=== PATIENT | female | born 1975 | race Caucasian/White ===

== ENCOUNTER 2022-03-17 13:40 | Emergency (ER) | payer BC, SELFPAY ==
--- NOTE | ~2022-03-17 | XR_ITS ---
EXAM: XR abdomen/kub 1V DATE: 03/17/2022 14:09 HISTORY: right flank pain/hematuria . COMPARISON: None available. FINDINGS: Normal bowel gas pattern. No organomegaly. 7 mm calcific density projects over the right l ower pole. Multiple pelvic phleboliths. Regional bones and soft tissues normal for age. IMPRESSION: Right nephrolithiasis. Multiple phleboliths could obscure distal collecting system stones . Reviewed, dictated and finalized at location K. IMPRESSION: Right nephrolithiasis. Multiple phleboliths could obscure distal co llecting system stones.
[2022-03-17 13:52] VITALS: BP 141/87; PULSE 68; RESP 16; TEMP 36.8; O2SAT 100
--- NOTE | 2022-03-17 13:52 | ED.FEMALEGU ---
HPI - Female Genitourinary General Chief complaint: Urogenital-Female Stated complaint: lower back pain Time Seen by Provider: 03/17/22 13:52 Source: patient and RN notes reviewed Mode of arrival: ambulatory Limitations: no limitations History of Present Illness HPI Narrative: 47-year-old female presented for complaint of sudden onset right flank pain today at 0845. States pain is severe, and radiates to the right upper abdomen. She endorses nausea, chills and sweats, and urinary urgency for voiding small amounts. Pain is sharp and constant, nothing improves or worsens the pain. She denies dysuria, hematuria, vomiting. Denies injury. Took ibuprofen at onset of symptoms without relief. Related Data Home Medications Medication Instructions Recorded Confirmed No Home Medications 03/17/22 03/17/22 Allergies Allergy/AdvReac Type Severity Reaction Status Date / Time butorphanol Allergy Mild Nausea and Unverified 03/17/22 14:00 Vomiting meperidine Allergy Mild Nausea and Unverified 03/17/22 14:00 Vomiting Review of Systems Review of Systems: CONSTITUTIONAL: Denies body aches, fever, chills, or sweats. CARDIOVASCULAR: Denies chest pain, palpitations, or edema. RESPIRATORY: Denies cough or dyspnea. GASTROINTESTINAL: Reports right upper abdominal pain, nausea GENITOURINARY: Reports urgency, right flank pain SKIN: Denies rash, itching, or wounds. MUSCULOSKELETAL: Denies myalgia. PMFSH Comments At time of signature, I have reviewed and agree with nursing past medical, surgical, social and family history unless otherwise noted. Please see nursing chart for further information. There is no relevant family history pertinent to the presenting complaint Exam Narrative: GENERAL: appears in pain, no acute distress. ENT: Mucous membranes pink and moist. CHEST: Clear to auscultation. HEART: Regular rate and rhythm. ABDOMEN: Abd Soft, nondistended, RUQ TTP, and right CVA tenderness MUSCULOSKELETAL: No bony tenderness. SKIN: Warm, dry, no rash. NEURO: Alert and oriented x3. Gait steady. Course Course Emergency Course: Patient is aware of diagnosis, understands and agrees to treatment plan. Portions of this record may have been created with voice recognition software Level of Care: Express Care Visit Vital Signs Vital signs: Vital Signs Temperature 98.3 F 03/17/22 13:52 Pulse Rate 68 03/17/22 13:52 Respiratory Rate 16 03/17/22 13:52 Blood Pressure 141/87 H 03/17/22 13:52 Pulse Oximetry 100 03/17/22 13:52 Temperature 98.3 F 03/17/22 13:52 Pulse Rate 68 03/17/22 13:52 Respiratory Rate 16 03/17/22 13:52 Blood Pressure 141/87 H 03/17/22 13:52 Pulse Oximetry 100 03/17/22 13:52 Reviewed Transfer Transfered to: [facility] Transportation: Other (private vehicle) Transfer rationale: Pt is agreeable to transfer to ER for right renal stone evaluation. Requests transfer to [facility] via private vehicle. Risks of transportation reviewed with pt including injury, worsening of condition and . v/u. will be driving pt; Report called to [facility], spoke with Dr Aguiar, accepting physician. Pt is in stable condition at time of transfer. Advised to remain NPO and go directly to the hospital. MDM - Female Genitourinary MDM Narrative Medical decision making narrative: Urine shows 1+ blood. KUB ordered. IM toradol and zofran given for c/o severe pain. Reports pain down to 5/10. Xray reviewed with pt, 7mm stone noted, advised ER transfer. Differential Diagnosis Differential diagnosis: Likely urinary tract infection, cystitis and other (nephrolithiasis, renal colic, cholecystitis, biliary colic) Lab Data Labs: Urine Glucose Negative Reference Range: Negative Urine Bilirubin Negative Reference Range: Negative Urine Ketone
[2022-03-17] MEDS: ONDANSETRON HCL ODT 4 MG TABLET SUBLINGUAL (14:07)
[2022-03-17] MEDS: KETOROLAC (*BKC) 60 MG/2 ML VIAL IM (14:07)
== END 2022-03-17 14:45 | disposition short-term general hospital (02) ==
PROVIDERS: Emergency Provider Nurse Practitioner Family; PCP Nurse Practitioner Family
DX: N20.0 Calculus of kidney (principal)
CPT/HCPCS: 74018; 81003; 96372; 99203; A9270; G0463; J1885

== ENCOUNTER 2022-03-17 15:03 | Emergency (ER) | payer BC, SELFPAY ==
--- NOTE | ~2022-03-17 | CT_ITS ---
EXAMINATION: CT abdomen pelvis wo con DATE: 03/17/2022 15:42 INDICATION: Right flank pain. TECHNIQUE: Computed tomography (CT) of the abdomen and pelvis was performed without intravenous contr ast. Automated exposure control and iterative reconstruction technique were employed. The dose-length product was 195.82 mGy-cm. COMPARISON: None. FINDINGS: The visualized portions of the lung bases demonstrate mild atelectasis. A calcified right l teresa nodule is consistent with old granulomatous disease. No pleural effusion. The heart size is tony l. No pericardial effusion. The liver, gallbladder, spleen, pancreas, and adrenal glands are normal. There are 3 mm and 8 mm stones in right kidney. There is mild right hydronephrosis and hydroureter. T here is a 5 mm stone in distal right ureter. There is a 4 mm stone in left kidney. There are no patho logically enlarged lymph nodes. There is no free intraperitoneal fluid. There is thoracolumbar levosc oliosis. There is severe degenerative disc disease at L5-S1. IMPRESSION: 1. 5 mm stone in distal right ureter with mild right hydronephrosis and hydroureter. 2. Bilateral nonobstructing kidney stones. Reviewed, dictated and finalized at location A. IMPRESSION: 1. 5 mm stone in distal right ureter with mild right hydronephrosis and hydrour eter. 2. Bilateral nonobstructing kidney stones.
[2022-03-17 15:17] VITALS: BP 148/96; PULSE 74; RESP 16; TEMP 36.9; O2SAT 97
[2022-03-17 15:24] LABS: Basophils Absolute Auto 0.1 K/mm3 (0.0-0.1); Basophils Percent Auto 0.3 % (0.2-1.2); Hematocrit 41.2 % (37.0-47.0); Hemoglobin 13.7 g/dL (12.0-15.0); Immature Granulocyte Absolute 0.05 K/mm3 (0.00-0.031); Immature Granulocyte Percent A 0.3 % (0-0.5); Lymphocytes Percent Auto 6.5 % (18.3-44.2); Mean Corpuscular HGB Conc 33.3 g/dl (32-36); Mean Corpuscular Hemoglobin 31.9 pg (26-34); Mean Corpuscular Volume 95.8 fl (80-100); Mean Platelet Volume 10.4 fl (7.4-10.4); Monocytes Absolute Auto 0.5 K/mm3 (0.1-0.6); Monocytes Percent Auto 3.4 % (2.6-8.5); Neutrophils Absolute Auto 13.8 K/mm3 (1.3-6.7); Neutrophils Percent Auto 89.5 % (45.5-73.1); Platelet Count Result 278 k/mm3 (150-375); Red Cell Distribution Width 12.5 % (11.5-14.5); White Blood Count 15.4 K/mm3 (4.5-10.0)
[2022-03-17 15:42] LABS: Alanine Aminotransferase 17 U/L (6-35); Albumin Level 4.9 g/dL (3.5-5.1); Alkaline Phosphatase 57 U/L (38-126); Anion Gap 5 mmol/L (8-16); Aspartate Amino Transferase 30 U/L (14-36); Bilirubin,Total 0.8 mg/dL (0.2-1.3); Blood Urea Nitrogen 10 mg/dL (7-17); Calcium 9.4 mg/dL (8.4-10.2); Carbon Dioxide 22 mmol/L (22-30); Chloride 107 mmol/L (98-107); Estimated CRCL calculation 85 ml/min; Estimated Glomerular Filt Rate > 60; Glucose 136 mg/dL (65-110); Potassium 4.7 mmol/L (3.4-5.0); Sodium 134 mmol/L (137-145)
--- NOTE | 2022-03-17 16:25 | ED.FEMALEGU ---
HPI - Female Genitourinary General Chief complaint: Urogenital-Female Stated complaint: right flank pain - kidney stone Time Seen by Provider: 03/17/22 15:18 Source: patient and family Mode of arrival: ambulatory Limitations: no limitations History of Present Illness HPI Narrative: 47 years old white female developed a right flank pain at 8 AM this morning, associated with nausea, restlessness, was not able to get comfortable in any position. Went to urgent care had a diagnosis of right distal ureteric stone, received Toradol and Zofran prior to arrival with good improvement. Patient referred to our emergency room for further evaluation. Patient is healthy otherwise, does not take medicine at home, denied any smoking, drinking or using drugs. She denies a history of kidney stone as well Related Data Allergies Allergy/AdvReac Type Severity Reaction Status Date / Time butorphanol Allergy Mild Nausea and Verified 03/17/22 15:19 Vomiting meperidine Allergy Mild Nausea and Verified 03/17/22 15:19 Vomiting Review of Systems Review of Systems: All systems reviewed & are unremarkable except as noted in HPI and below Exam Narrative: General appearance: Well-developed, well-nourished Skin: Normal color Head: Normocephalic, nontraumatic Eyes: Clear conjunctiva ENT: Oropharynx normal, ears normal, nose normal Neck: Supple, nontender Chest and respiratory: Airway patent, no respiratory distress, no accessory muscle use Heart: Regular rate/rhythm Abdomen: Soft, slight tenderness right flank,, no organomegaly, quiet bowel sounds Vascular: Normal peripheral pulses, normal capillary refill. Musculoskeletal: Normal range of motion, nontender back Neurologic: Alert and oriented ?3, [employer] is normal as tested, no gross motor deficit Course Consultations Consultation #1: Dr. Rodriguez Patient can go home, as long as feeling okay, call office tomorrow for appointment. Date: 03/17/22 Time: 17:05 Vital Signs Vital signs: Vital Signs Temperature 36.9 C 03/17/22 15:17 Pulse Rate 74 03/17/22 15:17 Respiratory Rate 16 03/17/22 15:17 Blood Pressure 148/96 H 03/17/22 15:17 Pulse Oximetry 97 03/17/22 15:17 Temperature 36.9 C 03/17/22 15:17 Pulse Rate 74 03/17/22 15:17 Respiratory Rate 16 03/17/22 15:17 Blood Pressure 148/96 H 03/17/22 15:17 Pulse Oximetry 97 03/17/22 15:17 MDM - Female Genitourinary Lab Data Result diagrams: 03/17/22 15:19 03/17/22 15:19 Labs: Lab Results 03/17/22 03/17/22 03/17/22 Range/Units 15:19 15:19 15:52 WBC 15.4 H (4.5-10.0) K/mm3 RBC 4.30 (4.2-5.4) M/mm3 Hgb 13.7 (12.0-15.0) g/dL Hct 41.2 (37.0-47.0) % MCV 95.8 (80-100) fl MCH 31.9 (26-34) pg MCHC 33.3 (32-36) g/dl RDW 12.5 (11.5-14.5) % Plt Count 278 (150-375) k/mm3 MPV 10.4 (7.4-10.4) fl Immature Gran % (Auto) 0.3 (0-0.5) % Neut % (Auto) 89.5 H (45.5-73.1) % Lymph % (Auto) 6.5 L (18.3-44.2) % [place] % (Auto) 3.4 (2.6-8.5) % Eos % (Auto) 0.0 (0-4.4) % Baso % (Auto) 0.3 (0.2-1.2) % Lymph # (Auto) 1.00 (0.9-3.2) K/mm3 [place] # (Auto) 0.5 (0.1-0.6) K/mm3 Eos # (Auto) 0.0 (0-0.3) K/mm3 Baso # (Auto) 0.1 (0.0-0.1) K/mm3 Abs Immat Gran (auto) 0.05 H (0.00-0.031) K/mm3 Absolute Neuts (auto) 13.8 H (1.3-6.7) K/mm3 Absolute Nucleated RBC 0.0 (0.0-0.012) K/mm3 Nucleated RBC % 0.0 (0.0-0.2) % Sodium 134 L (137-145) mmol/L Potassium 4.7 (3.4-5.0) mmol/L Chloride 107 (98-107) mmol/L Carbon Dioxide 22 (22-30) mmol/L Anion Gap 5 L (8-16) mmol/L BUN 10 (7-17) mg/dL
[2022-03-17 16:36] LABS: Appearance Urine Cloudy (Clear); Bilirubin Urine Negative (Negative); Color Urine Yellow (Yellow); Glucose Urine UA Negative (Negative); Ketones Urine Negative (Negative); Leukocyte Esterase Ur Negative LEU/UL (Negative); Nitrate Urine Negative (Negative); Protein Urine Trace mg/dL (Negative); Specific Grav Ur >= 1.030 (1.001-1.035); Urobilinogen Urine 0.2 mg/dL (<2.0); pH Urine 5.5 (5.0-9.0)
[2022-03-17 16:47] LABS: Budding Yeast Urine Present /hpf; Mucus Urine Few /lpf; RBC Urine 0-2 /hpf (0-2); Squamous Epithelial Cell Urine Moderate /hpf (Few)
[2022-03-17] MEDS: TAMSULOSIN HCL 0.4 MG CAPSULE PO (16:47)
[2022-03-17 16:48] LABS: Add Urine Microscopic? YES; Blood Urine Trace-Intact (Negative)
== END 2022-03-17 17:35 | disposition home or self-care (01) ==
PROVIDERS: Emergency Provider Emergency Medicine; PCP Nurse Practitioner Family
DX: N13.2 Hydronephrosis with renal and ureteral calculous obstruction (principal)
CPT/HCPCS: 36415; 74176; 80053; 81001; 81025; 85025; 99284; A9270

== ENCOUNTER → 2022-04-18 14:59 | Outpatient (CLI) | payer BC, SELFPAY ==
--- NOTE | ~2022-04-18 | CT_ITS ---
EXAMINATION: CT abdomen pelvis wo con DATE: 04/18/2022 15:36 INDICATION: Calculus of the right ureter TECHNIQUE: Computed tomography (CT) of the abdomen and pelvis was performed without intravenous contr ast. The dose-length product (DLP) was 323.38 mGy-cm. Automated exposure control and iterative recons truction technique were employed. COMPARISON: 03/17/2022 FINDINGS: Minimal dependent atelectasis is present in the lung bases. The heart size is normal. The l iver, spleen, pancreas, gallbladder, and adrenal glands are normal. Again noted are stones in the low er pole of the right kidney which measures 3 mm an 8 mm. There is an unchanged 5 mm stone in the dist al right ureter near the ureterovesicular junction. There is a 4 mm nonobstructing stone of the left kidney. No pathologically enlarged abdominal or pelvic lymph nodes are identified. There is no free i ntraperitoneal gas or evidence of bowel obstruction. There are multiple phleboliths of the pelvis. Th ere is severe loss of intervertebral disc space height at L5-S1. IMPRESSION: 1. Persistent 5 mm stone of the distal right ureter. 2. Bilateral nonobstructing nephrolithiasis. Reviewed, dictated and finalized at location A.
--- NOTE | ~2022-04-18 | XR_ITS ---
EXAMINATION: XR abdomen/kub 1V INDICATION: Right ureteral stone TECHNIQUE: Supine views of the abdomen were obtained on 2 radiographs. COMPARISON: 03/17/2022 FINDINGS: There is an 8 mm stone of the right kidney. A 4 mm stone is seen in the left kidney lower p ole. There are multiple phleboliths of the pelvis. A right pelvic calcification likely reflects the r ight distal ureteral stone seen on CT. The bowel gas pattern is normal. IMPRESSION: 1. Right pelvic calcification corresponding to the right distal ureteral stone seen on CT. 2. Bilateral nephrolithiasis. Reviewed, dictated and finalized at location A.
== END ==
PROVIDERS: PCP Nurse Practitioner Family; Visit Provider Urology
DX: N20.1 Calculus of ureter (principal); N20.0 Calculus of kidney
CPT/HCPCS: 74018; 74176

== ENCOUNTER 2022-04-26 09:24 | Outpatient (CLI) | payer BC, SELFPAY | END 2022-04-26 09:25 | disposition home or self-care (01) | LOC: ANHLAB 09:25 | PROVIDERS: PCP Nurse Practitioner Family; Visit Provider Urology | DX: Z01.818 Encounter for other preprocedural examination (principal); N20.0 Calculus of kidney | CPT/HCPCS: 87086 ==

== ENCOUNTER 2022-04-29 00:48 | Day surgery (SDC) | payer BC, SELFPAY ==
[2022-04-25 14:23] VITALS: BMI 26.6
--- NOTE | 2022-04-25 14:33 | PC.NURSE ---
PRE-OP INSTRUCTIONS, PLEASE READ CAREFULLY Report to the Outpatient Waiting Room, entrance under the green pavilion located off [facility], at time _0900_ on date _04/29/22_. OR Time: _1100_. Time changes happen often and if your time is changed the preop area will call you the afternoon before. - You and your visitor will be asked to self-screen and do not enter if you have any COVID symptoms. - We encourage only one visitor and NO visitors under age 16 are allowed at this time. Your visitor will receive communication by the phone number that is given day of service. - The patient visitor is requested to social distance or may leave the building when not with patient due to restrictions. - A mask is required within the hospital. Patients may have clear liquids (water, carbonated beverages, clear teas, apple juice) until 3 hours prior to surgery (0800 AM) with a maximum of 20 ounces. - No food from midnight until time of surgery Take the following medications with a SIP of water the morning of surgery: N/A Medications to discontinue per physician N/A Date to take last dose Please no make-up, nail japanese, hairspray, perfume, deodorant, or body powder the day of surgery. No jewelry (including any body piercings) or valuables the day of surgery, leave them at home. Please take a shower or bath the night before, or the morning of, surgery with an antibacterial soap. Wear comfortable, loose fitting clothing. - Jewelry must be removed prior to entering the operating room. Rings and piercings that are not removed may be cut off. - The hospital will not accept responsibility for valuables. - Please leave all valuables, including medications, at home the day of surgery. If you are going home after surgery, a licensed escort vehicle driver must drive you home. - NO public transportation without another adult. - We recommend that an adult stay with you for 24 hours following discharge. - We also recommend that you do not drive, make important decision, drink alcoholic beverages, or take any drugs that were not prescribed by your health care provider for at least 24 hours after your discharge time. Follow any additional instructions given to you from your surgeon. If you or anyone in your household have experienced Covid symptoms in the past week, please notify your surgeon or the nurse liaison at the phone number below for possible testing. Telephone instructions given to ____PT and asked if any additional questions and then verbalized understanding. Patient advised to call surgeon office or pre surgery nurse liaison [phone] if any additional questions.
[2022-04-29] VITALS (7 sets, daily range): BP systolic 130–152; BP diastolic 77–106; PULSE 64–110; RESP 14–16; TEMP 36.8–36.9; O2SAT 99–100
--- NOTE | ~2022-04-29 | XR_ITS ---
EXAMINATION: XR retrograde pyelo w/stent RT DATE: 04/29/2022 11:58 INDICATION: Right retrograde Polygram and internal ureteral stent placement. TECHNIQUE: 3 fluoroscopic images of the abdomen and pelvis were obtained during procedure performed abdelrahman Rodriguez. Radiologist was not present for the imaging or procedure. The amount of fluoroscopy t claribel used during this procedure was 0.2 minutes. COMPARISON: None. FINDINGS: Images demonstrate cannulation and retrograde contrast opacification of the right ureter and renal co llecting system. No filling defects or urothelial irregularities identified. Subsequent images demons trate placement of a right internal ureteral stent with loops formed in the right renal pelvis and in the bladder. IMPRESSION: 1. Right internal ureteral stent in expected position. See procedure note for further detail. Reviewed, dictated and finalized at location B. IMPRESSION: 1. Right internal ureteral stent in expected position. See procedure note for f urther detail.
--- NOTE | 2022-04-29 09:39 | P.PNAN_ITS ---
Anes - Initial Pre Proc Eval Procedure: Operation Date: 04/29/22 11:00 Proposed Procedures p Cystoscopy, Right Ureteroscopy, Right Stone Extraction, Right Stent Placement, Right Retrograde Pyelogram, Possible Holmium Laser - Denzel Rodriguez MD Date/Time: 04/29/22 09:39 Surgeon: Denzel Rodriguez MD Pre Op Diagnosis: Ureteral Kidney Stone, Right Side Patient Data Age: 47 Gender: F Height: 1.6 m Weight: 68.18 kg Allergies Allergy/AdvReac Type Severity Reaction Status Date / Time butorphanol AdvReac Mild Nausea and Verified 04/29/22 07:09 Vomiting meperidine AdvReac Mild Nausea and Verified 04/29/22 07:09 Vomiting Home Medications Medication Instructions Recorded Confirmed Type No Home Medications 04/25/22 04/25/22 History Patient hx anesthesia problems: none Family hx anesthesia problems: none Results Review: All pre-operative results and documents have been reviewed as part of the pre- operative evaluation. [facility] Social History Social History Smoking status: Never smoker Second hand tobacco smoke exposure: No Alcohol intake: never Substance use: never Substance use type: does not use Living arrangements: with family Spiritual care concerns: No Anes - Eval Final PreProcedure Day of Procedure 04/29/22 09:39 Patient weight: overweight Heart: regular rate and rhythm Lungs: clear to auscultation Airway: Mallampati scale class 1 Neurological: alert and oriented Last oral intake: >/= 8 hours ASA classification: II Emergent: no Anesthetic plan: proceed Anesthesia type and monitoring: general LMA and standard monitoring Results Review: All pre-operative results and documents have been reviewed as part of the pre- operative evaluation. Informed Consent: The patient's anesthetic plan and its attendant risks and benefits were discussed with the patient/family/POA. Questions were solicited and answers provided to the satisfaction of the patient/family/POA.
--- NOTE | 2022-04-29 09:56 | WPDHPUPDATE1 ---
History and Physical Update Update Date/Time: 04/29/22 09:56 History and Physical has been reviewed, including an updated exam of the patient. There are NO changes in the patient's condition. Risks, benefits, and alternatives have been discussed and questions answered. Patient agrees to proceed with procedure. Proceed with cystoscopy, right retrograde pyelogram, right ureteroscopy with stone extraction, possible laser, stent placement
[2022-04-29] MEDS: LACTATED RINGERS 1,000 ML 30 ML IV CONT (10:45)
[2022-04-29] MEDS: SCOPOLAMINE 1.5 MG PATCH TRANSDERM (10:49)
[2022-04-29] MEDS: KETOROLAC 30 MG/ML VIAL (*BKC) IV PUSH (11:54)
[2022-04-29] MEDS: ceFAZolin 2 GM/D5W 50 ML 2 GM/50 ML BAG IVPB (11:54)
[2022-04-29] MEDS: LIDOCAINE HCL 2% GEL UROJET 10 ML PKG MUCOUS MEM (11:55)
--- NOTE | 2022-04-29 11:59 | P.OP_ITS ---
Procedure Note - Detailed Date of Procedure 04/29/22 Pre-op Diagnosis Right ureteral calculus Post-op Diagnosis Same Procedure Performed Cystoscopy, right retrograde pyelogram, right ureteroscopy with stone extraction, right ureteral stent placement 4.8 English contour Surgeon Denzel Rodriguez MD Anesthesia General Description of Procedure Patient is taken to the operative suite correctly identified. Once anesthesia was obtained she was placed in dorsal lithotomy position and prepped and draped usual sterile fashion. Twenty-two English scope was inserted in the bladder. There were no tumors noted. The right ureteral orifice was cannulated with a guidewire. We dilated the orifice using an 8/10 dilator. Rigid ureteral scope was inserted into the orifice. The stone was visualized. Using an escape basket we were able to retrieve the stone 1 piece and sent for analysis. Reinspection of the ureter revealed no residual stones. Retrograde pyelogram was then performed confirm placement of the stent. 4.8 English contour stent was placed with the proximal end coiled in the renal pelvis and the distal in the bladder. Bladder was drained. 2% viscous lidocaine was inserted into the urethra patient is taken recovery stable condition. She will be discharged home and follow up next week for stent removal. Estimated Blood Loss 0 Drains Yes Packing No Pathology Yes Complications No immediate complications Condition Stable Disposition PACU
[2022-04-29] MEDS: ONDANSETRON INJ 4 MG/2 ML VIAL IV PUSH (12:41)
[2022-04-29] MEDS: diphenhydrAMINE HCl INJ 50 MG/ML VIAL 12.5 MG IV PUSH (13:02)
== END 2022-04-29 13:48 | disposition home or self-care (01) ==
PROVIDERS: PCP Nurse Practitioner Family; Visit Provider Urology
PROC: (CPT 52352; principal; 2022-04-29 11:00)
DX: N20.1 Calculus of ureter (principal)
CPT/HCPCS: 52332; 52352; 74420; 82365; 88300; A9270; C1769; C2617; J0690; J1100; J1170; J1200; J1885; J2250; J2405; J2704; J3010; J7120; Q9966

== ENCOUNTER 2022-06-23 08:03 | Outpatient (CLI) | payer BC, SELFPAY ==
[2022-06-23 09:24] LABS: Partial Thromboplastin Time 26.9 SECONDS (22.3-36.8); Prothrombin Time 12.6 Seconds (11.1-14.7)
== END 2022-06-23 08:04 | disposition home or self-care (01) ==
LOC: ANHSURGERY 08:05
PROVIDERS: PCP Nurse Practitioner Family; Visit Provider Urology
DX: Z01.818 Encounter for other preprocedural examination (principal); N20.0 Calculus of kidney
CPT/HCPCS: 36415; 85610; 85730; 87086

== ENCOUNTER 2022-06-27 01:48 | Day surgery (SDC) | payer BC, SELFPAY ==
[2022-06-16 12:53] VITALS: BMI 27.3
--- NOTE | 2022-06-16 12:55 | PC.NURSE ---
Report to the Outpatient Waiting Room, entrance under the green pavilion located off [facility], at time 6:30 on date 06/27/22. Planned Procedure Time: 8:30. Time changes happen often and if your time is changed the preop area will call you the afternoon before. - You and your visitor will be asked to self-screen and do not enter if you have any COVID symptoms. - Only one visitor is requested with a max of two and NO children visitors are allowed at this time. - The patient visitor may be requested to leave or wait in car when not with patient due to distancing restrictions. - A mask is optional within the hospital. Patients may have clear liquids (water, carbonated beverages, clear teas, apple juice) until 3 hours prior to surgery (5:30) with a maximum of 20 ounces. - No food from midnight until time of surgery Take the following medications with a SIP of water the morning of surgery: N/A Medications to discontinue per physician: N/A Date to take last dose: N/A Please no make-up, nail cape verdean, hairspray, perfume, deodorant, or body powder the day of surgery. No jewelry (including any body piercings) or valuables the day of surgery, leave them at home. Please take a shower or bath the night before, or the morning of, surgery with an antibacterial soap. Wear comfortable, loose fitting clothing. - Jewelry must be removed prior to entering the operating room. Rings and piercings that are not removed may be cut off. - The hospital will not accept responsibility for valuables. - Please leave all valuables, including medications, at home the day of surgery. If you are going home after surgery, a licensed yard driver must drive you home. - NO public transportation without another adult if you receive anesthesia. - We recommend that an adult stay with you for 24 hours following discharge. - We also recommend that you do not drive, make important decision, drink alcoholic beverages, or take any drugs that were not prescribed by your health care provider for at least 24 hours after your discharge time. Follow any additional instructions given to you from your surgeon. If you or anyone in your household have experienced Covid symptoms in the past week, please notify your surgeon or the nurse liaison at the phone number below for possible testing. Telephone instructions given to PT - EZ AGUIAR and asked if any additional questions and then verbalized understanding. Patient advised to call surgeon office or pre surgery nurse liaison [phone] if any additional questions.
[2022-06-27] VITALS (7 sets, daily range): BP systolic 109–137; BP diastolic 66–94; PULSE 59–86; RESP 10–16; TEMP 36.6–36.8; O2SAT 100
--- NOTE | ~2022-06-27 | XR_ITS ---
EXAMINATION: XR abdomen/kub 1V INDICATION: Nephrolithiasis TECHNIQUE: Supine views of the abdomen were obtained on 2 radiographs. COMPARISON: 04/18/2022 FINDINGS: There is an 8 mm stone in the lower pole of the right kidney. There are multiple phlebolith s of the pelvis. A moderate volume of colonic stool is present. IMPRESSION: 1. Unchanged stone of the right kidney lower pole. Reviewed, dictated and finalized at location A. 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
[2022-06-27] MEDS: LACTATED RINGERS 1,000 ML 30 ML IV CONT (06:50)
--- NOTE | 2022-06-27 07:00 | WPDANESEPPF ---
Anes - Initial Pre Proc Eval Procedure: Operation Date: 06/27/22 07:30 Proposed Procedures p Right Renal Extracorporeal Shock Wave Lithotripsy - Denzel Rodriguez MD Date/Time: 06/27/22 07:00 Surgeon: Denzel Rodriguez MD Pre Op Diagnosis: Rt Renal Kidney Stone Patient Data Age: 47 Gender: F Height: 1.6 m Weight: 73.6 kg Last Vital Signs Temp 36.6 C 06/27/22 06:15 Pulse 71 06/27/22 06:15 Resp 16 06/27/22 06:15 BP 134/89 06/27/22 06:15 Pulse Ox 100 06/27/22 06:15 O2 Del Method Room Air 06/27/22 06:15 Allergies Allergy/AdvReac Type Severity Reaction Status Date / Time butorphanol AdvReac Mild Nausea and Verified 06/27/22 06:09 Vomiting meperidine AdvReac Mild Nausea and Verified 06/27/22 06:09 Vomiting Home Medications Medication Instructions Recorded Confirmed Type No Home Medications 04/25/22 06/27/22 History Patient hx anesthesia problems: none Family hx anesthesia problems: none Results Review: All pre-operative results and documents have been reviewed as part of the pre-operative evaluation. [facility], [facility] Past Medical History Medical History (Updated 06/27/22 @ 07:01 by Dat Lovell MD) History of renal stone Overweight Surgical History Surgical History (Updated 06/27/22 @ 07:01 by Dat Lovell MD) Hx of cystoscopy Social History Social History Smoking status: Never smoker Second hand tobacco smoke exposure: No Alcohol intake: never Substance use: never Substance use type: does not use Living arrangements: with family Spiritual care concerns: No Anes - Eval Final PreProcedure Day of Procedure 06/27/22 07:00 Patient weight: overweight Heart: regular rate and rhythm Lungs: clear to auscultation Airway: Mallampati scale class 1 Neurological: alert and oriented Last oral intake: >/= 8 hours ASA classification: II Emergent: no Anesthetic plan: proceed Anesthesia type and monitoring: general LMA and standard monitoring Results Review: All pre-operative results and documents have been reviewed as part of the pre-operative evaluation. Informed Consent: The patient's anesthetic plan and its attendant risks and benefits were discussed with the patient/family/POA. Questions were solicited and answers provided to the satisfaction of the patient/family/POA.
--- NOTE | 2022-06-27 07:20 | WPDHPUPDATE1 ---
History and Physical Update Update Date/Time: 06/27/22 07:20 History and Physical has been reviewed, including an updated exam of the patient. There are NO changes in the patient's condition. Risks, benefits, and alternatives have been discussed and questions answered. Patient agrees to proceed with procedure. Proceed with right renal eswl
[2022-06-27] MEDS: ceFAZolin 2 GM/D5W 50 ML 2 GM/50 ML BAG IVPB (07:31)
--- NOTE | 2022-06-27 08:15 | W.PM.PROC2 ---
Procedure Note - Detailed Date of Procedure 06/27/22 Pre-op Diagnosis Rt Renal Kidney Stone Post-op Diagnosis Same Procedure Performed Lithotripsy of right renal calculus Surgeon Denzel Rodriguez MD Anesthesia General Findings Right renal calculus Description of Procedure Patient is taken to the operative suite correctly identified. Once anesthesia was obtained the stone was localized in both planes. Two thousand five hundred shocks were given the stone. There appeared to be good fragmentation. Patient is taken recovery stable condition. She will follow-up in 7-10 days with [facility]. Please send copy of report to my office Estimated Blood Loss 0 Drains No Packing No Pathology None sent Complications No immediate complications Condition Stable Disposition PACU
== END 2022-06-27 09:48 | disposition home or self-care (01) ==
PROVIDERS: PCP Nurse Practitioner Family; Visit Provider Urology
PROC: (CPT 50590; principal; 2022-06-27 07:30)
DX: N20.0 Calculus of kidney (principal)
CPT/HCPCS: 50590; 74018; J0690; J1100; J2250; J2405; J2704; J3010; J7120

== ENCOUNTER 2022-07-17 17:38 | Outpatient (CLI) | payer BC, SELFPAY ==
--- NOTE | ~2022-07-17 | XR_ITS ---
EXAMINATION: XR abdomen/kub 1V DATE: 07/17/2022 17:57 INDICATION: Right ureteral stone. TECHNIQUE: A supine view of the abdomen on 2 radiographs was obtained. COMPARISON: CT abdomen and pelvis 04/18/2022 FINDINGS: There are no dilated loops of bowel. The kidneys are obscured by bowel. There are numerous phleboliths in the pelvis. IMPRESSION: 1. No visible urolithiasis. Reviewed, dictated and finalized at location A. GER OF PROGRAM IMPRESSION: 1. No visible urolithiasis.
== END 2022-07-17 17:39 | disposition home or self-care (01) ==
LOC: ANHIMG 17:40
PROVIDERS: PCP Nurse Practitioner Family; Visit Provider Urology
DX: N20.1 Calculus of ureter (principal)
CPT/HCPCS: 74018

== ENCOUNTER 2023-02-17 08:53 | Outpatient (CLI) | payer BC, SELFPAY ==
--- NOTE | ~2023-02-17 | MM_ITS ---
EXAMINATION: MM screening rikki BI w jazmine HISTORY: Screening mammogram TECHNIQUE: Craniocaudal and mediolateral oblique 3-D tomosynthesis images were obtained and synthetic 2-D images were generated. CAD analysis was submitted and interpreted. COMPARISON: 12/20/2018 bilateral screening mammogram BREAST PARENCHYMAL COMPOSITION: There are scattered areas of fibroglandular density. FINDINGS: There is no evidence of suspicious mass, calcification, or architectural distortion to sugg est malignancy in either breast. There has been no suspicious interval change. IMPRESSION: 1. No mammographic evidence of malignancy. 2. Recommend routine screening mammography in one year. BI-RADS Category 1: Negative Reviewed, dictated and finalized at location A.
== END 2023-02-17 08:54 | disposition home or self-care (01) ==
LOC: ANHIMG 08:54
PROVIDERS: PCP Family Medicine; Visit Provider Nurse Practitioner
DX: Z12.31 Encounter for screening mammogram for malignant neoplasm of breast (principal)
CPT/HCPCS: 77063; 77067